=== PATIENT | female | born 1985 ===

== ENCOUNTER 2025-06-07 06:45 | Outpatient (REF) | payer OTHER, SELFPAY ==
--- NOTE | ~2025-06-07 | US_ITS ---
EXAMINATION: US ABDOMEN HISTORY: UPPER ABD DISCOMFORT TECHNIQUE: Real-time grayscale ultrasound imaging of the abdomen was performed and images were reviewed. COMPARISON: There are no prior studies available for comparison. FINDINGS: Liver: The right lobe of the liver measures 13.9 cm in size. The left lobe of the liver measures 10.1 cm in size. The liver demonstrates normal homogeneous echotexture. No focal mass or intrahepatic biliary ductal dilatation is identified. There is normal hepatopedal flow in the portal vein. Gallbladder and biliary tree: The gallbladder is unremarkable, without evidence of calculi, wall thickening, or pericholecystic fluid. There is no sonographic Wasserman sign. The common bile duct is normal in caliber measuring 2 mm. Kidneys: The right kidney measures 10.2 cm in length. The left kidney measures 10.4 cm in length. The kidneys are unremarkable, without evidence of masses, hydronephrosis, or calculi. Pancreas: The pancreatic head, neck, and body are unremarkable. The pancreatic tail is obscured by bowel gas. Spleen: The spleen is normal in size and contour, measuring 11.5 cm in length. Abdominal aorta and inferior vena cava: The visualized portions of the abdominal aorta and inferior vena cava are normal in caliber. There is no free fluid in the abdomen. US/US abdomen complete IMPRESSION: Unremarkable abdominal ultrasound. Electronically signed by: Otoniel Diallo MD 06/07/2025 01:01 PM EDT
== END 2025-06-07 06:46 | disposition home or self-care (01) ==
LOC: HO.UMASIMG 06:45
PROVIDERS: Visit Provider Family Medicine
DX: K59.00 Constipation, unspecified (principal)
CPT/HCPCS: 76700

== ENCOUNTER → 2025-06-07 11:00 | Outpatient (BNV) | payer OTHER, SELFPAY | PROVIDERS: Visit Provider Radiology Diagnostic Radiology | DX: R10.10 Upper abdominal pain, unspecified (principal) | CPT/HCPCS: 76700 ==